=== PATIENT | male | born 2000 | race Caucasian/White ===

== ENCOUNTER 2018-12-03 15:07 | Emergency (ER) | payer SELFPAY ==
[2018-12-03 15:08] VITALS: BP 121/68; PULSE 66; RESP 18; TEMP 36.8; O2SAT 98; BMI 21.4
--- NOTE | 2018-12-03 15:50 | EKG12_ITS ---
Test Reason : GENERAL ILLNESS Blood Pressure : / mmHG Vent. Rate : 060 BPM Atrial Rate : 060 BPM P-R Int : 120 ms QRS Dur : 078 ms QT Int : 394 ms P-R-T Axes : 018 059 033 degrees QTc Int : 394 ms Normal sinus rhythm Normal ECG Confirmed by HORTENCIA MOSS, AMY ([id number]), movie editor MATTHEW FOSTER ([id number]) on 12/07/2018 2:00:51 PM Referred By: ANA Confirmed By:AMY BURNETT MD
[2018-12-03 16:06] VITALS: BP 133/68; PULSE 60; RESP 18; O2SAT 100
[2018-12-03 16:10] LABS: Absolute Lymphocyte Count 1.59 X10^3/ul (0.83-4.51); Absolute Neutrophil Count 8.7 X10^3/uL (2.0-7.7); Basophil# 0.03 X10^3/uL; Basophil% 0.3 % (0-1); Eosinophil# 0.23 X10^3/uL; Eosinophils% 2.1 % (0-5); Hematocrit 45.9 % (40-54); Lymphocyte # 1.59 X10^3/ul (4.0); Lymphocyte % 14.2 % (19-41); Mean Corp Hgb Conc 34.9 g/gl (32-36); Mean Corpuscular Hgb 31.6 pg (27.0-32.0); Mean Corpuscular Volume 90.5 fL (80-94); Mean Platelet Vol. 10.7 fl (6.2-12.0); Monocyte% 5.4 % (0-10); Neutrophil # 8.74 X10^3/uL (2.7-7.7); Neutrophil % 77.8 % (47-70); Platelet Count 188 K/mm3 (150-450); RBC Distribution Width CV 12.4 % (11.6-14.6); RBC Distribution Width SD 40.5 fl (35.1-43.9); Red Blood Count 5.07 M/mm3 (4.6-6.2); White Blood Count 11.2 K/mm3 (4.4-11.0)
[2018-12-03 16:11] LABS: POSITIVE COUNT NO; POSITIVE DIFFERENTIAL NO; POSITIVE MORPHOLOGY NO
--- NOTE | 2018-12-03 16:12 | ED.VISSUMM ---
- ER Visit Summary Date of Service: 12/03/18 Chief Complaint: Dizzy History of Present Illness: The patient is a 18 M who reports onset of dizziness, leg shaking, and sweating approximate 20 minutes after arriving to work today. He felt he was going to pass out. He has a history of syncope in the past secondary to heart murmur. Last episode was approximately 2 years ago. Patient did not eat anything before work this morning. He later told the nurse that he drank 2 Red Bulls before work. Physical Examination: Vital signs unremarkable. Heart rate is 66. Patient sitting upright in bed no acute distress. Head neck examination is normal. Heart is regular rate and rhythm. Mild 2/6 heart murmur noted. Lung sounds are clear. Abdomen is soft nontender. Neuro exam is unremarkable. Test Results: CBC was a white count 11.2, otherwise unremarkable. Chemistry studies normal. BG T on arrival is 94. EKG is sinus at 60 with no sign of acute ischemia. Emergency Department Course and Treatment: Patient is given a liter of IV fluids. At this time he has no sign of arrhythmia. He will be advised to avoid highly caffeinated drinks such as red bull. He will be referred to local primary care physician for establishment of care. Treatment Plan: [] Disposition: Discharge Impression: Palpitations This note was generated with [employer] dictation software. It may contain incorrect words, spelling, and punctuation that were not noted in review of the chart prior to signing ED Disposition - Plan for ED Patient: Referrals: Care Physician,No Primary [Primary Care Provider] -
[2018-12-03] MEDS: 0.9% Normal Saline 1,000 ML 1000 ML IV (16:13)
[2018-12-03 16:20] LABS: Bedside Glucose 94 mg/dL (70-110)
[2018-12-03 16:35] LABS: BUN 9 mg/dL (7-18); Creatinine, Serum 0.89 mg/dL (0.70-1.30); Glucose 89 mg/dL (74-106)
[2018-12-03 16:36] LABS: Anion Gap 3 (5-15); BUN/Creat Ratio 10.2 RATIO (10-20); Calcium,Total 9.2 mg/dL (8.5-10.1); Chloride 104 mmol/L (98-107); EST Glomerular Filtration Rate 116 mL/min (>60); Est Glom Filt Rate - Afr Amer 141 mL/min (>60); Estimated Creatinine Clearance 116.03 ml/min; Potassium 4.2 mmol/L (3.5-5.1); Sodium Level 137 mmol/L (136-145)
--- NOTE | 2018-12-03 16:43 | ED.DEP ---
ED Disposition - Plan for ED Patient: Disposition: Home or Assisted Living Instructions: ED Palpitations Referrals: Breonna Farnsworth MD [COURTESY STAFF PHYSICIAN] - As Needed
[2018-12-03 17:00] VITALS: BP 102/76; PULSE 85; RESP 14; O2SAT 99
== END 2018-12-03 17:01 | disposition home or self-care (01) ==
PROVIDERS: Emergency Provider Emergency Medicine
DX: R00.2 Palpitations (principal); R01.1 Cardiac murmur, unspecified; Z72.0 Tobacco use
CPT/HCPCS: 80048; 82962; 85025; 93005; 96360; 99284; J7030

== ENCOUNTER 2018-12-26 00:09 | Emergency (ER) | payer SELFPAY ==
[2018-12-26 00:11] VITALS: BP 127/83; PULSE 64; RESP 19; TEMP 36.8; O2SAT 99; BMI 27.8
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
== END 2018-12-26 01:02 | disposition left against medical advice (07) ==
PROVIDERS: Emergency Provider Emergency Medicine
DX: R55 Syncope and collapse (principal); V09.9XXA Pedestrian injured in unspecified transport accident, initial encounter; Y93.9 Activity, unspecified; Y92.410 Unspecified street and highway as the place of occurrence of the external cause; Y99.9 Unspecified external cause status; Z72.0 Tobacco use
CPT/HCPCS: 99284

== ENCOUNTER 2019-03-24 03:01 | Emergency (ER) | payer SELFPAY ==
[2019-03-24 03:02] VITALS: BP 143/86; PULSE 81; RESP 17; TEMP 36.8; O2SAT 98; BMI 21.9
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
--- NOTE | 2019-03-24 03:51 | ED.DEP ---
ED Disposition - Plan for ED Patient: Instructions: Abrasion Referrals: Care Physician,No Primary [Primary Care Provider] -
[2019-03-24 04:06] VITALS: BP 132/80; PULSE 78; RESP 16; TEMP 37; O2SAT 98
[2019-03-24] MEDS: Naproxen 500 MG Tablet PO (04:06)
== END 2019-03-24 04:07 | disposition home or self-care (01) ==
LOC: ED 03:42
PROVIDERS: Emergency Provider Emergency Medicine
DX: S80.211A Abrasion, right knee, initial encounter (principal); S80.212A Abrasion, left knee, initial encounter; W19.XXXA Unspecified fall, initial encounter; Y93.9 Activity, unspecified; Y92.89 Other specified places as the place of occurrence of the external cause; Y99.9 Unspecified external cause status; M79.89 Other specified soft tissue disorders; Z72.0 Tobacco use
CPT/HCPCS: 73564; 99283; A4216

== ENCOUNTER 2019-12-31 22:36 | Emergency (ER) | payer SELFPAY ==
[2019-12-31 22:37] VITALS: BP 137/79; PULSE 70; RESP 18; TEMP 36.6; O2SAT 97; BMI 21.7
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
--- NOTE | 2019-12-31 23:20 | ED.RN ---
pt talking with crisis on portable phone.
--- NOTE | 2019-12-31 23:24 | ED.RN ---
PATIENT WILL SEE CRISIS ON FRIDAY AT 6 PM FOR OUTPATIENT APPOINTMENT
[2019-12-31 23:39] VITALS: PULSE 85; RESP 16
== END 2019-12-31 23:39 | disposition home or self-care (01) ==
LOC: ED 23:32
PROVIDERS: Emergency Provider Emergency Medicine
DX: F32.9 Major depressive disorder, single episode, unspecified (principal); F17.200 Nicotine dependence, unspecified, uncomplicated; Z91.010 Allergy to peanuts
CPT/HCPCS: 99282